=== PATIENT | male | born 2000 | race Caucasian/White ===

== ENCOUNTER 2024-12-12 17:35 | Outpatient (REF) | payer SELFPAY ==
[2024-12-16 12:38] LABS: Acrosom Defect 15.5 %; Appearance Normal; Container Type 50 mL Conical; Double Forms 1.5 %; Head Shape Abnormal 29.5 %; Head Size Abnormal 0.5 %; Midpiece Defect 21.5 %; Motile/Ejaculate 182.4 x10(6) (>=9.0); Motile/mL 91.2 x10(6) (>=6.0); Motility 79 % (>=40); Sperm/mL 115.5 x10(6) (>=15.0); Strict Morph NL 4.5 % (>=4.0); Study Type Semen
== END 2024-12-12 17:36 | disposition home or self-care (01) ==
LOC: LBN 17:35
PROVIDERS: Visit Provider Obstetrics & Gynecology
DX: N46.9 Male infertility, unspecified (principal)
CPT/HCPCS: 89240; 89310